=== PATIENT | male | born 1960 | race Caucasian/White ===

== ENCOUNTER 2018-08-08 21:00 | Emergency (ER) | payer BC ==
[2018-08-08] MEDS ORDERED: Lidocaine 1% PF 5 ML VIAL ONE (21:14)
[2018-08-08] MEDS ORDERED: HYDROcodone/Acetaminophen 5/325 mg Tablet ONE (21:21)
--- NOTE | 2018-08-08 22:11 | RAD ---
FIFTH FINGER LEFT HAND 3 VIEWS: Date: 08/08/18 HISTORY: Post reduction. FINDINGS/IMPRESSION: The PIP dislocation has been reduced. Small fragment is seen ventral to the PIP joint indication smal l avulsion fracture associated with the dislocation. POS: HUBERT
== END 2018-08-08 22:00 | disposition home or self-care (01) ==
LOC: SCSER 21:00
DX: S63.287A Dislocation of proximal interphalangeal joint of left little finger, initial encounter (principal); F17.210 Nicotine dependence, cigarettes, uncomplicated; W20.8XXA Other cause of strike by thrown, projected or falling object, initial encounter
CPT/HCPCS: 26770; J2001

== ENCOUNTER 2019-07-24 08:35 | Outpatient (CLI) | payer OTHER ==
--- NOTE | 2019-07-24 11:14 | RAD ---
UPPER GI: HISTORY: Abdominal pain. Chest discomfort. Esophageal obstruction. COMPARISON: None. EXPOSURE: 2.2 minutes, 85.5 mg. FINDINGS: Initial senior payroll manager radiograph of the abdomen demonstrates a nonspecific bowel gas pattern. No suspicious d ensities in the abdomen and pelvis. Patient was administered effervescent crystals and thick barium. The patient experienced significant pain and could not ingest all of the thick barium. Given the overall discomfort, thin barium was not administered. Based on the images provided, there is irregularity involving the esophageal mucosa with intermittent areas of filling defect. No evidence of a high-grade esophageal obstruction. Grossly the visualized gastric mucosa and duodenum are unremarkable. There was intermittent reflux during fluoroscopy. Post procedure 2 view chest radiograph: Irregularity in the opacified thoracic esophagus is noted. Postprocedure 2 views abdomen: There is contrast opacifying stomach and normal caliber small bowel loops. IMPRESSION: 1. Irregular esophagus without evidence of high-grade obstruction. 2. Intermittent reflux during fluoroscopy. 3. Endoscopy may be beneficial. Transcribed Date/Time: 07/24/2019 11:39 AM
== END 2019-07-24 08:36 | disposition home or self-care (01) ==
LOC: RAD 08:35
PROVIDERS: ATTEND Specialist
DX: K21.0 Gastro-esophageal reflux disease with esophagitis (principal)
CPT/HCPCS: 74246

== ENCOUNTER 2019-08-10 15:47 | Inpatient (IN) | payer OTHER ==
[~2019-08-10 15:47] MED LIST: Iopamidol-370 76% 500 ML 1 ML ONE
[2019-08-10 17:04] LABS: Hemoglobin 11.8 g/dL (14.0-18.0); Mean Corpuscular HGB CONC 30.6 g/dL (32.0-36.0); Mean Corpuscular Hemoglobin 26.6 pg (27.0-31.0); Mean Platelet Volume 6.9 fL (7.4-10.4); Platelet Count 509 thou/uL (130-400); RBC Distribution Width 14.6 % (11.5-14.5); Red Blood Cell (RBC) Count 4.46 mill/uL (4.70-6.10); White Blood Cell (WBC) Count 17.9 thou/uL (4.8-10.8)
[2019-08-10 17:27] LABS: ALT (SGPT) 32 U/L (8-55); AST (SGOT) 15 U/L (5-34); Albumin 3.3 g/dL (3.5-5.0); Alkaline Phosphatase 115 U/L (40-110); Anion Gap 10 mmol/L (10-20); BUN (Urea Nitrogen) 24 mg/dL (8.4-25.7); Bilirubin, Total 0.4 mg/dL (0.2-1.2); Calc. Creatinine Clearance 0 mL/min (70-130); Calcium 8.3 mg/dL (7.8-10.44); Carbon Dioxide 32 mmol/L (22-29); Chloride 95 mmol/L (98-107); Estimated GFR-MDRD Greater than 90; Globulin 2.8 g/dL (2.4-3.5); Glucose 134 mg/dL (70-105); Lipase Less than 4 U/L (8-78); Potassium 4.4 mmol/L (3.5-5.1); Protein, Total 6.1 g/dL (6.0-8.3); Sodium 133 mmol/L (136-145)
[2019-08-10 17:41] LABS: Anisocytosis SLIGHT = 6-15 cells (100X) (0-5/hpf); Band 12 % (5-11); Hypochromia SLIGHT = 6-15 cells (100X) (0-5/hpf); Lymphocytes 2 % (21-51); MDiff Complete? YES; Monocytes 1 % (0-10); Neutrophil 85 % (42-75); Ovalocytes SLIGHT = 2-5 cells (100X) (0-1/hpf); Platelet Morphology Comment Appears Increased; Polychromasia SLIGHT = 2-3 cells (100X) (0-2/hpf)
[2019-08-10] MEDS ORDERED: Morphine 4 MG/ML VIAL ONE ×3 (18:04→22:00)
--- NOTE | 2019-08-10 18:26 | RAD ---
Chest AP view INDICATION: 58-year-old male with abdominal pain COMPARISON: Prior chest 2 views dated August 06, 2019 FINDINGS: Lungs: Some mild residual patchy opacities remain in the left lower lobe possibly reflective of subs egmental volume loss. Cardiac silhouette: The cardiomediastinal silhouette appears within normal limits. Pulmonary vasculature: Normal Pleural spaces: Resolution of previously seen pleural effusions. Upper abdomen: Small amount of curvilinear lucency overlies the colon of the left hemidiaphragm. Osseous structures: No acute osseous abnormality. Additional findings: Right chest wall port is stable IMPRESSION: Small amount of curvilinear lucency underlying the left hemidiaphragm possibly reflective of the luis wilian bubble that is posterior to the gas-filled transverse colon. Left lateral decubitus radiograph of the abdomen is recommended to evaluate for possible free air. Resolution of previously seen pleura l effusions. Mild patchy opacity remains within the left lower lobe possibly reflective of subsegmental volume loss. Pneumonia or aspiration is not entirely excluded. Recommend correlation wit h the clinical examination.
--- NOTE | 2019-08-10 19:04 | CT ---
CT OF THE ABDOMEN AND PELVIS WITH IV CONTRAST INDICATION: Left orbital pain status post PEG tube placement COMPARISON: CT the abdomen and pelvis with contrast dated July 26, 2019 FINDINGS: ABDOMEN: Lung bases: There is a tiny right and small left pleural effusion with left basilar atelectasis. Ther e is scattered pulmonary nodules within both lungs consistent with metastatic disease. Liver: Small left hepatic lobe hypodensity is stable appearing. Gallbladder: Normal appearing. Pancreas: Normal. Adrenal glands: Left adrenal lesion has slightly increased in size now measuring 2.2 cm were previous ly measured 1.7 cm Adrenal glands normal appearing. Spleen: Normal. Kidneys and ureters: There is stable left renal cyst. Right kidney is normal-appearing. Vasculature: Normal. Lymph nodes:The lymph node in the gastrohepatic region is stable measuring 1.9 cm. An additional prev iously measuring 1.3 cm now measures 1.5 cm. The enlarged lymph node, adjacent to the distal esophagus is enlarged now measuring 2.2 cm were previously measured 2.1 cm. Large circumferential mas s of the distal esophagus is stable appearing. Marked wall thickening of the proximal gastric body, fundus and cardia stable appearing. Free fluid in abdomen:There is mild to moderate free fluid within the upper abdomen. There is mild fr ee air within the anterior abdomen. PELVIS: Small and large bowel: There is a percutaneous gastrostomy tube projecting within the lumen of the di stal gastric body. Appendix:Not visualized Bladder: Normal. Rectal and perirectal soft tissues:Normal. Reproductive structures: Normal. Free fluid in pelvis: Cwvy-ki-wkkzpyiy free fluid Lymphadenopathy pelvis: No lymphadenopathy is evident. Osseous structures: There is been interval development of mildly displaced pathologic fractures invol ving the posterior left ninth and 10th ribs. There is a lytic lesion within the left transverse process of T9. There is scattered degenerative and osteoarthritic changes. There is stable mild wedg e compression abnormality involving T12. Soft tissues:Normal. IMPRESSION: 1. Interval placement of a percutaneous gastrostomy tube with [id number] free fluid and mild fr ee air within the abdomen. The tube appears to be within the lumen of the distal gastric body. 2. Large distal esophageal mass with marked wall thickening involving the proximal stomach consistent patient's known history of malignancy with suspicion for malignant spread to the proximal stomach. A component of gastritis is not excluded. There is worsening lymphadenopathy of the lower posterior m ediastinum and upper abdomen. There is an enlarging left adrenal metastatic lesion. There is been interval development of osteolytic pathologic fractures involving the left ninth and 10th rib with an additional osteolytic lesion involving the transverse process of the left ninth rib. Stable pulmonary metastatic disease 3. Persistent small left pleural effusion with left basilar atelectasis.
[2019-08-10] MEDS ORDERED: Morphine 4 MG/ML VIAL SLOW IVP PRN (22:46)
[2019-08-10] MEDS ORDERED: Zolpidem Tartrate 5 MG TAB PO PRN (23:26)
[2019-08-10] MEDS ORDERED: diphenhydrAMINE 50 MG/ML VIAL IVP PRN (23:26)
[2019-08-10] MEDS ORDERED: diphenhydrAMINE 25 MG CAP PO PRN (23:26)
[2019-08-10] MEDS ORDERED: Promethazine HCl 25 MG/ML VIAL IM PRN (23:26)
[2019-08-10] MEDS ORDERED: diphenhydrAMINE 50 MG/ML VIAL IM PRN (23:26)
[2019-08-10] MEDS ORDERED: Ondansetron PF 4 MG/2 ML Vial IVP PRN (23:26)
[2019-08-10] MEDS ORDERED: Naloxone HCl 0.4 mg/ml Vial IV PRN (23:26)
[2019-08-10] MEDS ORDERED: Communication Order-Pharmacy FS SCH (23:30)
[2019-08-11] MEDS: Sodium Chloride 0.9% 1,000 ML IV SCH ×2 (00:01→06:45)
[2019-08-11] MEDS: HYDROmorphone 10 mg/100 ml CADD IVPB PRN ×2 (00:22→19:25)
[2019-08-11 00:45] VITALS: BMI 24.7
[2019-08-11] MEDS ORDERED: Ketorolac Tromethamine 30 MG/ML VIAL IVP SCH (02:00)
[2019-08-11 04:49] LABS: Band 37 % (5-11); Hypochromia SLIGHT = 6-15 cells (100X) (0-5/hpf); Lymphocytes 2 % (21-51); MDiff Complete? YES; Mean Corpuscular HGB CONC 31.9 g/dL (32.0-36.0); Mean Corpuscular Hemoglobin 27.7 pg (27.0-31.0); Mean Corpuscular Volume 86.9 fL (78.0-98.0); Mean Platelet Volume 7.1 fL (7.4-10.4); Monocytes 2 % (0-10); Neutrophil 59 % (42-75); Platelet Count 465 thou/uL (130-400); Platelet Morphology Comment Appears Increased; RBC Distribution Width 14.8 % (11.5-14.5); Red Blood Cell (RBC) Count 4.34 mill/uL (4.70-6.10); White Blood Cell (WBC) Count 24.3 thou/uL (4.8-10.8)
[2019-08-11 04:50] LABS: Anion Gap 11 mmol/L (10-20); BUN (Urea Nitrogen) 20 mg/dL (8.4-25.7); Calc. Creatinine Clearance 105 mL/min (70-130); Carbon Dioxide 30 mmol/L (22-29); Chloride 97 mmol/L (98-107); Estimated GFR-MDRD Greater than 90; Glucose 113 mg/dL (70-105); Potassium 4.5 mmol/L (3.5-5.1); Sodium 133 mmol/L (136-145)
[2019-08-11] MEDS ORDERED: Sodium Chloride 0.9% (PF) 10 ML VIAL FS PRN (07:56)
[2019-08-11] MEDS ORDERED: Ondansetron PF 4 MG/2 ML Vial IVPB PRN (07:57)
--- NOTE | 2019-08-11 07:58 | HP ---
CHIEF COMPLAINT: Acute abdominal pain. HISTORY OF PRESENT ILLNESS: The patient has recently been discharged from [facility] with well controlled pain from metastatic esophageal and gastric cancer. His cell types have come back both squamous cell and adenocarcinoma with demonstrated mets to the brain, lungs, back, adrenal glands, and many enlarged abdominal and chest lymph nodes, but he was managing well until about 3:00 p.m. on the day of admission when he had sudden acute abdominal pain. While in the hospital, the patient required placement of a J-tube into the jejunum for feeding purposes because a PEG tube was not placed, where there was so much cancer burden in the stomach, but the patient had managed well. This pain was new and acute and unbearable, such that he came to the emergency room and in the ER by CAT scan, he was noted to have free air and free fluid in the abdomen. Dr. Altman was contacted concerning this and he felt that this was possibly/probably related to his recent abdominal procedure and we put him into the hospital to observe him overnight. His white count went from 17.9000 WBCs with 12 bands to 24,000 with 37 bands. He has required FERMENTER HELPER pump to manage his pain and it is just taking the edge off his pain. He still states he is in a great deal of pain. On evaluation at the time of my admission, he is moaning in pain as I enter the room. I asked him when he last used his FERMENTER HELPER, he stated could not find it, so it was directed to his hand and he was evaluated and found to have a very firm abdomen with guarding and rebound. At this point, I am reaching out to Dr. Altman for reassessment. 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 Prior to this last hospitalization, he had just COPD with emphysema, anxiety disorder, and dyslipidemia. PAST SURGICAL HISTORY: His only prior surgical procedures had been an endoscopy prior to his placement of J-tube. PSYCHIATRIC HISTORY: As mentioned above is noted for depression and anxiety. SOCIAL HISTORY: He is not , but has a significant other. He has continued to smoke up until his last hospitalization and drank approximately five drinks per day. ALLERGIES: NO KNOWN DRUG ALLERGIES. MEDICATIONS ON ADMISSION: Include, 1. Pantoprazole 40 mg b.i.d. 2. Reglan 10 mg q.i.d. 3. Simethicone 80 mg p.r.n. 4. He recently was discontinued on Zoloft daily. 5. Promethazine 50 mg p.r.n. hiccups. 6. He had hydrocodone 10 mg tablets p.r.n. breakthrough pain. 7. He was wearing a Duragesic patch 25 mcg changed every 72 hours. 8. He has Zofran p.r.n. nausea. 9. He was placed on Decadron 4 mg in a diminishing schedule for brain swelling due to metastasis there. 10. He also had Bentyl p.r.n. abdominal cramps. 11. Was on an ddrs-hfs-wwptqgc nicotine patch. REVIEW OF SYSTEMS: CONSTITUTIONAL: At the time of admission, denied fever, chills, nausea, vomiting, diarrhea. HEENT: No concerns with drainage or pain or discharge from head, ears, eyes, nose, or throat. CHEST: No significant pain. Only occasional cough. CARDIOVASCULAR: Denies palpitations or chest pain. BACK: He has acute T3 pain from an occult compression fracture. ABDOMEN: Exquisite pain generally mid-epigastrically and admits to nausea, but no vomiting or diarrhea. : Denies blood in urine or stool or pain with defecation, urination. MUSCULOSKELETAL: At this moment, denies pain with any of the extremities or major muscle groups. NEUROLOGIC: Has significant anxiety. PHYSICAL EXAMINATION: At the time of admission, VITAL SIGNS: Blood pressure 159/88, pulse 77, temperature 98.1, respirations 16, O2 saturation 91% to 92% on room air. GENERAL: This is a well-developed, well-nourished, male. Alert, oriented, cooperative, in acute distress. HEENT: Normocephalic, atraumatic. Pupils are equal, round, and reactive to light. Extraocular muscles are intact. TMs, nares, and pharynx are clear. NECK: Supple. CHEST: With good breath sounds bilaterally. HEART: Regular rate and rhythm. Tachycardic during my exam. ABDOMEN: Firm. Exquisitely tender to palpation and noted to have rebound. Acute tenderness surrounding the insertion area of his J-tube. : Exam deferred. EXTREMITIES: Without clubbing, cyanosis, or edema. SKIN: Without rashes or lesions. NEUROLOGIC: Cranial nerves are intact. Sensory exam is intact. Mental status is at baseline. Unable to test gait, cerebellar function. LABORATORY DATA: On admission, initial WBC 17.9, now 24.3, hemoglobin 12, hematocrit 37.7, platelets at 465. Neutrophils were 85 with 12 bands on admission, they have now gone to 59 neutrophils with 37 bands. Sodium 133, potassium 4.5, chloride 97, CO2 of 30, BUN 20, creatinine 0.74 with a GFR greater than 90, glucose 113. Liver functions, alkaline phos high at 115, otherwise unremarkable. Lipase less than 4. DIAGNOSTIC DATA: The CT as previously mentioned showed interval placement of the J-tube with wbed-mw-zemqcqdx free fluid and mild free air, distal esophageal mass large, worsening lymphadenopathy, enlarging left adrenal mass. Pathological fractures of the left 9th and 10th ribs with metastatic pulmonary disease and persistent small left pleural effusion. ASSESSMENT: 1. Interval development of acute abdomen. 2. 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 PLAN: We have attempted pain management, but his medical condition has significantly worsened. Dr. Altman has been consulted on the case and I will reach out to him to let him know of his worsening condition and we will serially re-evaluate him. Continue to provide pain management. He may need surgical intervention for an acute abdominal situation yet to be determined. We will serially re-evaluate him. Job ID: [id number]
[2019-08-11] MEDS ORDERED: Sodium Chloride 0.9% 1,000 ML IV SCH ×2 (08:00→15:45)
--- NOTE | 2019-08-11 08:31 | PRG ---
DATE OF SERVICE: 08/11/2019 SUBJECTIVE: Mr. Cunningham was readmitted last night with abdominal pain. His CT shows a small amount of free fluid and free air. He had open G-tube during previous hospitalization, which was about a week and a half ago. 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 He has not started chemotherapy. He describes the pain as diffuse, making it hard to breathe. He was started on VISITING HOUSEKEEPER last night. OBJECTIVE: VITAL SIGNS: Blood pressure 140/83, pulse 97, respirations 16, O2 saturation 94% on 2 L. ABDOMEN: Soft, diffusely tender with diffuse guarding. A midline incision is healing well without infection. G-tube site is clear. LABORATORY DATA: White blood cell count is 24, he has 37 bands, his hemoglobin is 12. CT scan as above. ASSESSMENT: Peritonitis and diffuse abdominal pain after open G-tube with small amount of free fluid, free air on CT scan. The G-tube does appear to be in the stomach. PLAN: We will do oral contrast through the G-tube to rule out leak. Mr. Cunningham would be high risk to tolerate and recover from any additional abdominal procedures. However, if he has a G-tube associated complication that would be something we would have to do. Discussed the plan with the patient. He agrees. Job ID: [id number]
[2019-08-11] MEDS ORDERED: Prevnar 13-Val Conj/PF 0.5 ML SYRINGE IM ONE (09:00)
[2019-08-11] MEDS: Piperacillin/Tazobactam 3.375 GM in Sodium Chloride 0.9% 100 ML IVPB SCH ×3 (09:27→21:05)
[2019-08-11] MEDS: Dexamethasone 4 mg/ml Vial SLOW IVP SCH ×2 (09:28→21:00)
[2019-08-11] MEDS: Pantoprazole 40 MG VIAL IVP SCH ×2 (09:28→21:03)
[2019-08-11] MEDS: Nicotine 14 MG PATCH TOP SCH (09:28)
--- NOTE | 2019-08-11 11:08 | CT ---
CT ABDOMEN WITHOUT IV CONTRAST: HISTORY: Exam requested to evaluate appropriate placement of the gastrostomy tube. TECHNIQUE: Contrast was injected through the gastrostomy tube and images were obtained. FINDINGS: Contrast passes from the stomach into loops of small bowel. No contrast extravasation was seen. The f ree air and free fluid noted on the previous exam was again seen. Please see CT abdomen and pelvis with IV contrast report from the previous evening. POS: OFF
--- NOTE | 2019-08-11 12:19 | PDOC.EVN ---
Event Note - Event Note Event Note: CT with contrast thru G tube shows no leakage. No extraluminal contrast. He has persistent free fluid and air. He remains fairly tender on exam. I discussed at length with the patient and daughter. Only other option would be exploratory laparotomy. They would prefer to hold off for now. Started Zosyn. Continue to follow exam. Hold TF for now.
[2019-08-11] MEDS ORDERED: Iopamidol 370 76% 50 ML VIAL FS ONE (13:06)
[2019-08-11] MEDS ORDERED: Furosemide 40 MG/4 ML VIAL SLOW IVP SCH (15:45)
[2019-08-11] MEDS ORDERED: Furosemide 20 MG/2 ML VIAL SLOW IVP SCH (18:15)
[2019-08-12] MEDS: Piperacillin/Tazobactam 3.375 GM in Sodium Chloride 0.9% 100 ML IVPB SCH ×4 (03:22→21:14)
[2019-08-12 06:18] LABS: ALT (SGPT) 14 U/L (8-55); AST (SGOT) 12 U/L (5-34); Albumin 2.6 g/dL (3.5-5.0); Alkaline Phosphatase 77 U/L (40-110); Anion Gap 15 mmol/L (10-20); BUN (Urea Nitrogen) 25 mg/dL (8.4-25.7); Bilirubin, Total 0.7 mg/dL (0.2-1.2); Calc. Creatinine Clearance 84 mL/min (70-130); Calcium 8.6 mg/dL (7.8-10.44); Carbon Dioxide 28 mmol/L (22-29); Chloride 98 mmol/L (98-107); Estimated GFR-MDRD 84; Globulin 2.6 g/dL (2.4-3.5); Glucose 128 mg/dL (70-105); Potassium 4.7 mmol/L (3.5-5.1); Protein, Total 5.2 g/dL (6.0-8.3); Sodium 136 mmol/L (136-145)
[2019-08-12 08:03] LABS: Band 10 % (5-11); Hemoglobin 11.7 g/dL (14.0-18.0); Hypochromia SLIGHT = 6-15 cells (100X) (0-5/hpf); MDiff Complete? YES; Mean Corpuscular HGB CONC 30.1 g/dL (32.0-36.0); Mean Corpuscular Hemoglobin 26.9 pg (27.0-31.0); Mean Corpuscular Volume 89.5 fL (78.0-98.0); Mean Platelet Volume 7.3 fL (7.4-10.4); Metamyelocyte 1 % (0-0); Monocytes 2 % (0-10); Neutrophil 87 % (42-75); Platelet Count 425 thou/uL (130-400); Platelet Morphology Comment Appears Increased; RBC Distribution Width 14.7 % (11.5-14.5); Red Blood Cell (RBC) Count 4.35 mill/uL (4.70-6.10); White Blood Cell (WBC) Count 34.4 thou/uL (4.8-10.8)
[2019-08-12] MEDS: Pantoprazole 40 MG VIAL IVP SCH ×2 (09:39→21:13)
[2019-08-12] MEDS: Nicotine 14 MG PATCH TOP SCH (09:39)
[2019-08-12] MEDS: Dexamethasone 4 mg/ml Vial SLOW IVP SCH ×2 (09:39→21:13)
--- NOTE | 2019-08-12 11:20 | PRG ---
DATE OF SERVICE: 08/12/2019 SUBJECTIVE: Mr. Cunningham actually states that he feels better today. He is having drainage around the G-tube site. OBJECTIVE: VITAL SIGNS: He is afebrile and his vital signs are stable. He is requiring 3 L nasal cannula now. Urine output, 650 overnight. His abdomen is still distended with diffusely tender. He has bilious drainage around the G-tube site. The dressings are changed. The G-tube is up to gravity bag. LABORATORY DATA: White blood cell count is 34, but his bandemia has resolved. His creatinine is 0.93. ASSESSMENT: Metastatic GE junction adenocarcinoma, now with more abdominal distention fluid, worry that this represents advancement of his disease. PLAN: We will place his G-tube to gravity bag. This will probably palliate him somewhat and make him less distended. Prognosis is poor. Job ID: [id number]
[2019-08-12] MEDS: HYDROmorphone 10 mg/100 ml CADD IVPB PRN (16:16)
[2019-08-12] MEDS: Simethicone Chewable 80 MG TAB PER TUBE PRN (21:13)
[2019-08-12] MEDS: Cefdinir 125 MG/5 ML Oral Suspension PER TUBE SCH (21:13)
[2019-08-13] MEDS: Piperacillin/Tazobactam 3.375 GM in Sodium Chloride 0.9% 100 ML IVPB SCH ×2 (02:46→09:22)
[2019-08-13] MEDS: Simethicone Chewable 80 MG TAB PER TUBE PRN ×2 (02:46→09:30)
[2019-08-13 06:35] LABS: Hemoglobin 9.9 g/dL (14.0-18.0); Mean Corpuscular HGB CONC 30.9 g/dL (32.0-36.0); Mean Corpuscular Hemoglobin 27.6 pg (27.0-31.0); Mean Corpuscular Volume 89.3 fL (78.0-98.0); Mean Platelet Volume 7.3 fL (7.4-10.4); Platelet Count 383 thou/uL (130-400); RBC Distribution Width 14.6 % (11.5-14.5); Red Blood Cell (RBC) Count 3.58 mill/uL (4.70-6.10); White Blood Cell (WBC) Count 26.4 thou/uL (4.8-10.8)
[2019-08-13 06:53] LABS: ALT (SGPT) 13 U/L (8-55); AST (SGOT) 16 U/L (5-34); Albumin 2.4 g/dL (3.5-5.0); Alkaline Phosphatase 72 U/L (40-110); Anion Gap 11 mmol/L (10-20); BUN (Urea Nitrogen) 21 mg/dL (8.4-25.7); Bilirubin, Total 0.5 mg/dL (0.2-1.2); Calc. Creatinine Clearance 110 mL/min (70-130); Calcium 8.4 mg/dL (7.8-10.44); Carbon Dioxide 29 mmol/L (22-29); Chloride 99 mmol/L (98-107); Estimated GFR-MDRD Greater than 90; Globulin 2.9 g/dL (2.4-3.5); Glucose 101 mg/dL (70-105); Potassium 4.2 mmol/L (3.5-5.1); Protein, Total 5.3 g/dL (6.0-8.3); Sodium 135 mmol/L (136-145)
[2019-08-13 07:57] LABS: Band 19 % (5-11); Lymphocytes 4 % (21-51); MDiff Complete? YES; Monocytes 1 % (0-10); Neutrophil 76 % (42-75); Platelet Morphology Comment Appears Adequate; Polychromasia SLIGHT = 2-3 cells (100X) (0-2/hpf)
[2019-08-13] MEDS: Nicotine 14 MG PATCH TOP SCH (09:21)
[2019-08-13] MEDS: Cefdinir 125 MG/5 ML Oral Suspension PER TUBE SCH (09:21)
[2019-08-13] MEDS: Dexamethasone 4 mg/ml Vial SLOW IVP SCH (09:21)
[2019-08-13] MEDS: Pantoprazole 40 MG VIAL IVP SCH (09:22)
[2019-08-13] MEDS: HYDROmorphone 10 mg/100 ml CADD IVPB PRN (10:55)
[2019-08-13 12:02] VITALS: BP 138/75; TEMP 98.1
--- NOTE | 2019-08-13 17:26 | PQF ---
CHEY ZIEGLER, ANDREW Ridley MD [id number] CLINICAL DOCUMENTATION IMPROVEMENT CLARIFICATION FORM: ICD-10 Updated PLEASE DO AN ADDENDUM TO THE PROGRESS NOTE WITH ANY DOCUMENTATION UPDATES OR ADDITIONS AND CARRY THROUGH TO DC SUMMARY. THANK YOU. Date: 08/13/2019 ATTN: DR. Evette GRULLON Please exercise your independent, professional judgment in responding to the clarification form. Clinical indicators are provided on the bottom of this form for your review. Please check appropriate box(s): [ x ] Protein Calorie Malnutrition: [ ] Mild [ ] Moderate [ x ] Severe [ ] Other Malnutrition (please specify) __ [ ] Underweight without malnutrition [ ] Cachexia [ ] Other diagnosis [ ] Unable to determine In addition, please specify: Present on Admission (POA): [ x ] Yes [ ] No [ ] Unable to determine CLINICAL INDICATORS - SIGNS / SYMPTOMS / LABS / RESULTS AND LOCATION IN MR 08/09 H&P ([facility]) ADENOCARCINOMA WITH DEMONSTRATED METS TO THE BRAIN, LUNGS , BACK, ADRENAL GLANDS, AND MANY ENLARGED ABDOMINAL AND CHEST LYMPH NODES, WHILE IN THE HOSPITAL ON RECENT ADMISSION PT REQUIRED PLACEMENT OF A J-TUBE INTO THE JEJUNUM FOR FEEDING PURPOSES BECAUSE A PEG TUBE WAS NOT PLACED WHERE THERE WAS SO MUCH CANCER BURDEN IN THE STOMACH. 08/10 RD : NUTRITION DIAGNOSIS MALNUTRITION R/T RECENT FEEDING TUBE PLACEMENT, CANCER DIAGNOSIS EVIDENCED BY - 4% WEIGHT LOSS OVER 2 WEEKS WITH LIKELY INTAKE LESS THAN 50% OF ESTIMATED NEEDS FOR 5 + DAYS MEDICARE SALES EXECUTIVE SUGGESTIVE OF SEVERE MALNUTRITION IN THE CONTEXT OF ACUTE ILLNESS/INJURY. RISK: STAGE 4 ESOPHAGEAL CANCER, PEG TUBE (/08/10) TREATMENTS: DIETARY CONSULT ( 08/10) Moderate Malnutrition (in acute illness) Energy Intake: <75% of estimated energy requirement for > 7 days Weight Loss: 1-2%/1 week; 5%/ 1 month; 7.5%/3 months Other: mild body fat loss; mild muscle mass loss; mild fluid accumulation; Severe Malnutrition (in acute illness) Energy Intake: < 50% of estimated energy requirement for > 5 days Weight Loss: >1-2%/1 week; >5%/1 month; >7.5%/3 months Other: moderate body fat loss; moderate muscle mass loss; moderate- severe fluid accumulation; measurably reduced sanitary plumber strength Moderate Malnutrition (in chronic illness) Energy Intake: <75% of estimated energy requirement for >1 month Weight Loss: 5%/1 month; 7.5%/3 months; 10%/6 months; 20%/1 year Other: mild body fat loss; mild muscle mass loss; mild fluid accumulation Severe Malnutrition (in chronic illness) Energy Intake: <75% of estimated energy requirement for >1 month Weight Loss: >5%/1 month; >7.5%/3 months; >10%/6 months; >20%/1 year Other: severe body fat loss; severe muscle mass loss; severe fluid accumulation ; measurably reduced sanitary plumber strength THANK YOU! MAY (This form is maintained as a part of the permanent medical record) 2014 [employer]. All Rights Reserved [email or web address]
== END 2019-08-13 15:12 | disposition hospice, home (50) | DRG 371 ==
LOC: ERS 15:47 → ONC 21:30
PROVIDERS: ADMIT Specialist; ATTEND Specialist
DX: K65.9 Peritonitis, unspecified (principal); E43 Unspecified severe protein-calorie malnutrition; C16.0 Malignant neoplasm of cardia; G89.3 Neoplasm related pain (acute) (chronic); F17.210 Nicotine dependence, cigarettes, uncomplicated; J43.9 Emphysema, unspecified; F41.9 Anxiety disorder, unspecified; F32.9 Major depressive disorder, single episode, unspecified; E78.5 Hyperlipidemia, unspecified; Z68.24 Body mass index [BMI] 24.0-24.9, adult; Z79.899 Other long term (current) drug therapy
CPT/HCPCS: 36415; 71045; 74150; 74177; 77373; 80048; 80053; 83605; 83690; 85025; 93005; 96374; 96376; C9113; J1100; J1642; J1885; J1940; J2270; J2543; J3490; Q9967